=== PATIENT | male | born 1975 ===

== ENCOUNTER 2023-09-28 10:27 | Day surgery (SDC) | payer OTHER ==
[~2023-09-28] VITALS: Ht 167.6 cm; Wt 71.2 kg
[2023-09-28] MEDS ORDERED: NIFE10 (10:46)
== END 2023-09-28 15:34 | disposition home or self-care (01) ==
LOC: ORSCSDS 10:27
PROVIDERS: Surgery
PROC: 0DJD8ZZ Inspection of Lower Intestinal Tract, Via Natural or Artificial Opening Endoscopic (ICD-10-PCS; principal; 2023-09-28 13:00)
DX: K92.1 Melena (principal); K64.9 Unspecified hemorrhoids; K64.4 Residual hemorrhoidal skin tags; K64.8 Other hemorrhoids; K62.89 Other specified diseases of anus and rectum; K21.9 Gastro-esophageal reflux disease without esophagitis; E78.5 Hyperlipidemia, unspecified
CPT/HCPCS: J2704; J7120